=== PATIENT | male | born 1990 | race Two or more races ===

== ENCOUNTER 2016-02-11 00:33 | Day surgery (SDC) | payer OTHER ==
[2016-02-11] MEDS ORDERED: MORPHINE SULFATE 2 MG/ML SYRINGE ONE (01:20)
[2016-02-11] MEDS ORDERED: MORPHINE SULFATE 4 MG/ML SYRINGE ONE (01:20)
[2016-02-11] MEDS ORDERED: ONDANSETRON 4 MG/2ML 2 ML VIAL ONE ×2 (01:20→04:33)
[2016-02-11] MEDS ORDERED: SODIUM CHLORIDE 0.9% 1,000 ML ONE (01:20)
[2016-02-11 01:32] LABS: ABSOLUTE NEUTROPHIL COUNT 9.4 K/mm3 (1.8-7.7); BASO # 0.1 K/mm3 (0.0-0.2); BASO % 0.4 % (0.2-1.0); EOS # 0.1 (0.0-0.5); EOS % 0.5 % (0.9-2.9); HEMOGLOBIN 15.6 gm/l (14.0-18.0); IMM NEUT # 0.1 K/mm3 (0-0.2); IMM NEUT% 0.5 % (0-1); LYMPH # 2.4 (1.0-4.8); LYMPH % 18.5 % (15-45); MEAN CELL VOLUME 87.8 fl (80.0-94.0); MEAN CORPUSCULAR HEMOGLOBIN 29.8 pg (27.0-31.0); MEAN CORPUSCULAR HGB CONC 33.9 g/dl (33.0-37.0); MEAN PLATELET VOLUME 9.7 fl (7.4-10.4); MONO # 1.1 (0.0-0.8); MONO % 8.6 % (4-12); NEUT % 71.5 % (43-75); PLATELET COUNT 303 K/mm3 (130-400); RED CELL DISTRIBUTION WIDTH 11.9 % (11.5-14.5)
[2016-02-11] MEDS ORDERED: CEFAZOLIN SODIUM 1 GRAM PREMIX 50 ML IV ONE ×2 (01:39→01:40)
[2016-02-11 01:53] LABS: INR 0.98; PROTHROMBIN TIME 10.3 SECONDS (9.3-11.4)
[2016-02-11 01:54] LABS: CALCIUM 9.4 mg/dL (8.6-10.3)
[2016-02-11] MEDS ORDERED: LACTATED RINGERS 1,000 ML ONE (03:07)
[2016-02-11] MEDS ORDERED: CLINDAMYCIN 600 MG PREMIX 600 MG in Premix (D5W) 50 ml 1 EACH IV ONE ×2 (03:24→12:00)
[2016-02-11] MEDS ORDERED: FENTANYL 100 MCG/2 ML VIAL ONE (04:09)
[2016-02-11] MEDS ORDERED: CLINDAMYCIN PHOSPHATE 600 MG/4 ML VIAL ONE (04:31)
[2016-02-11] MEDS ORDERED: SODIUM CHLORIDE 0.9% 50 ML IV ONE (04:32)
[2016-02-11] MEDS ORDERED: METOCLOPRAMIDE HCL 5 MG/ML 2ML VIAL ONE (04:33)
[2016-02-11] MEDS ORDERED: PROPOFOL 20 ML IV ONE (04:33)
[2016-02-11] MEDS ORDERED: FAMOTIDINE 10 MG/ML 2ML VIAL ONE (04:33)
[2016-02-11] MEDS ORDERED: SUCCINYLCHOLINE CHL 20 MG/ML DOSE ONE (04:33)
[2016-02-11] MEDS ORDERED: PROMETHAZINE HCL 25 MG/ML VIAL IM PRN (04:48)
[2016-02-11] MEDS ORDERED: NALOXONE HCL 0.4 MG/ML VIAL IV PRN (04:48)
[2016-02-11] MEDS ORDERED: HYDRALAZINE HCL 20 MG/1 ML VIAL IV PRN (04:48)
[2016-02-11] MEDS ORDERED: ATROPINE SULFATE 0.4 MG/1 ML VIAL IV PRN (04:48)
[2016-02-11] MEDS ORDERED: MEPERIDINE 25 MG/ML SYRINGE IV PRN (04:48)
[2016-02-11] MEDS ORDERED: MORPHINE SULFATE 4 MG/ML SYRINGE IV PRN ×2 (04:48→06:35)
[2016-02-11] MEDS ORDERED: ONDANSETRON 4 MG/2ML 2 ML VIAL IV PRN ×2 (04:48→06:05)
[2016-02-11] MEDS ORDERED: MORPHINE SULFATE 10 MG/ML SYRINGE ONE (04:52)
[2016-02-11] MEDS ORDERED: LACTATED RINGERS 1,000 ML IV SCH (05:00)
--- NOTE | 2016-02-11 05:16 | PCMBPN ---
Brief Post Op Note: Date of Procedure: 02/11/16 Preoperative Diagnosis: 1. right foot grade 1 open first metatarsal fracture Postoperative Diagnosis: 1. [Same] Procedure: right foot grade 1 open first metatarsal fracture irrigation and debridement and closed treatment without manipulation of first metatarsal fracture Surgeon: Rocky Gonsalves MD Assist:None Anesthesia: GETA Findings: pt had a medial sided 2cm laceration by the fracture side. No gross contamination was appreciated. 2L of normal saline was used to irrigation the wound before it was closed primarily Condition: extubated, stable vitals, transferred to pacu Complications: None IV Fluids: 900 mLs of LR Urine Output:0 mLs Estimated Blood Loss: 10mLs Tourniquet Time: [N/A] Specimens: [N/A] Implants: None Drains: [N/A] Plan: NWB on the RLE. Clinda 600mg IV x one dose prior to discharge with oral keflex. Oxycodone for pain control. ASA for DVT prophylaxis.
[2016-02-11] MEDS ORDERED: DIPHENHYDRAMINE HCL 50 MG/1 ML VIAL IV PRN (06:05)
[2016-02-11] MEDS ORDERED: MORPHINE SULFATE 2 MG/ML SYRINGE IV PRN (06:05)
[2016-02-11] MEDS ORDERED: CLINDAMYCIN 600 MG PREMIX 600 MG in Premix (D5W) 50 ml 1 EACH IV SCH (06:05)
[2016-02-11] MEDS ORDERED: PUMP TUBING ONE (06:15)
[2016-02-11] MEDS ORDERED: SODIUM CHLORIDE 0.9% FLUSH 10 ML ONE (06:20)
[2016-02-11] MEDS: LACTATED RINGERS 1,000 ML IV SCH ×2 (06:26→13:59)
[2016-02-11 07:29] VITALS: BMI 31.6
--- NOTE | 2016-02-11 08:38 | RAD ---
RIGHT FOOT 3 VIEWS HISTORY: Crush injury of the right foot. COMPARISONS: None. TECHNIQUE: Frontal, lateral, and oblique views of the right foot. ALIGNMENT: Grossly unremarkable. FRACTURE: Mildly displaced oblique fracture through basal portions of the first metatarsal. Subtle medial angulation of distal fracture fragment. Comminuted fracture of the fifth distal phalanx. SOFT TISSUES: Soft tissue swelling at the medial aspect. RADIOOPAQUE FOREIGN BODY: None. IMPRESSION: 1. Mildly displaced, mildly angulated first metatarsal fracture. 2. Comminuted fracture of the fifth distal phalanx. 3. Medial soft tissue swelling.
--- NOTE | 2016-02-11 08:50 | RAD ---
FOOT - RIGHT 2 VIEW COMPARISON: Right foot 3 views, 02/11/2016 HISTORY: Postop irrigation of right foot open fracture of the first metatarsal. FINDINGS: Views: Right foot dorsoplantar and lateral. Bones: Mildly displaced/angulated fracture at the proximal diaphysis of the first metatarsal. Joints: Normal. Soft tissues: Diffuse edema. IMPRESSION: 1. Status post irrigation of right first metatarsal open fracture with mild angulation. No foreign body. Diffuse edema.
[2016-02-11] MEDS ORDERED: ASPIRIN (ENTERIC COATED) 325 MG TABLET.EC PO SCH (09:00)
[2016-02-11] MEDS ORDERED: PROMETHAZINE HCL 25 MG TABLET PO PRN (12:38)
[2016-02-11] MEDS: HYDROCODONE/ACETAMINOPHEN 5/325MG TABLET PO PRN ×2 (15:38→17:02)
[2016-02-11 16:15] VITALS: BP 120/70
--- NOTE | 2016-02-13 09:22 | HP ---
JANIE AYON : 1990 [id number] DATE OF ADMISSION: February 11, 2016 CHIEF COMPLAINT: I was at work when a 2 ton pallet crushed my right foot and I have a fracture. HISTORY OF PRESENT ILLNESS: The patient is a 25-year-old male who was at work in [place] where he works at [employer] when he sustained a crush injury to his right foot when 3 pallets knocked against his foot. He was wearing steel toed boots. Nonetheless, the patient had extreme pain. He was then brought to the [facility] where he was diagnosed with a 1st metatarsal fracture along with a medial sided laceration right by the fracture site. Because of the location near his fracture the ER physician was concerned about a grade I open fracture of his bone. For this reason he asked to see me for consultation. In the ER the patient had a bandaged foot. He had already received his IV antibiotics. He had signs of hematoma on the medial aspect of his foot by his 2cm medial laceration. The laceration itself is at the level of the fracture however, it is not clear that the bone actually exited the surface of the skin. There are no other signs of redness, drainage or any other contamination that can be appreciated on the outside of the skin. I cannot appreciate any foreign body in the wound itself. PAST MEDICAL/SURGICAL HISTORY: The patient states that he is in good health. He does not have diabetes or any cardiac disease. He has a history of 2 hernia operations as well as a left cubital tunnel surgery performed by Dr. Carr in [place] in October of 2015. ALLERGIES: NKDA, the patient does note that whenever he has had surgery in the past his skin has peeled. This is a superficial reaction and does get better. MEDICATIONS: None SOCIAL HISTORY: The patient does not smoke cigarettes. REVIEW OF SYSTEMS: The patient notes to fevers, chills, recent colds or any other problems with this right foot. PHYSICAL EXAMINATION: The patient is alert and oriented x3 and in no acute distress. He is afebrile, vital signs are stable. HEENT: EOMI bilaterally HEART: Regular rate LUNGS: Clear to auscultation bilaterally. ABDOMEN: Soft, NT and non-distended. Focused exam of the right foot demonstrates a 2cm medial sided foot laceration at the level of the fracture. This appears to be a tension sided injury. He has 5/5 strength of his EHL, TA, GA and peroneals. He has the ability to circumduct his foot. He has no numbness or tingling. He has gross sensation to light touch in the distribution of DP, SP, MP, LP, sural and saphenous nerves. He has a 1+ PT pulse. LABS: Sodium 141 Potassium 3.4 Chloride 104 Carbon dioxide 30 BUN 18 Creatinine 1.0. White blood cell count is 13.2 Hematocrit 46 Platelets 303 RADIOGRAPHS: Xrays performed on 02/11/16 demonstrate 3 views of the right foot. The patient has a minimally displaced 1st metatarsal fracture. This is a diaphyseal fracture that does not enter into the joint space. This is roughly at the level of the fracture. On the lateral view displacement is difficult to see. The fracture displacement is best seen on the oblique. IMPRESSION: The patient is a 25-year-old male who has a grade I 2cm laceration on the medial aspect by his 1st metatarsal fracture. PLAN: The patient last ate at 9:30. Because of the location of the fracture by this laceration there is concern about whether this is an open fracture. At this point I do not think the bone came through the skin however, this is a tension sided failure. The patient may still benefit from an I&D to help lower his risk of infection. He did receive Ancef, 2 grams. I talked to him about the risks and benefits of nonoperative and surgical treatment. At this point I think he would be best served by having a formal I&D in the operating room. Here in the ER I performed a superficial I&D showing no gross debris. I told him that the fracture itself should be able to heal with nonoperative treatment being nonweightbearing on this side. I reviewed with him the risks and benefits of I&D of this right foot and he signed the consent form. We will plan on doing this surgery as soon as the surgical team is available to perform this. CHELSIE: trell CC: [facility]
--- NOTE | 2016-02-13 09:56 | OP ---
JANIE AYON : 1990 V [id number] DATE OF PROCEDURE: February 11, 2016 PREOPERATIVE DIAGNOSIS: Right foot grade I open 1st metatarsal fracture. POSTOPERATIVE DIAGNOSIS: Right foot grade I open 1st metatarsal fracture. PROCEDURE: Right foot grade I open 1st metatarsal fracture irrigation and debridement and closed treatment without manipulation of the 1st metatarsal fracture. CPT codes: 48161 and 61769 SURGEON: Rocky Gonsalves M.D. [employer] WORKERS: None ESTIMATED BLOOD LOSS: 10 mL IV FLUIDS: 900 mL of LR URINE OUTPUT: 0 SPECIMENS: N/A TOURNIQUET TIME: N/A IMPLANTS: None DRAINS: N/A ANESTHESIA: General FINDINGS: The patient had a medial sided 1.5 - 2 cm laceration by the fracture site. The laceration was extended. No gross contamination was appreciated. 2 liters of normal saline were used to irrigate as I performed my debridement. The wound was fairly clean and showed no signs of gross contamination. CONDITION: The patient was extubated with stable vital signs and transferred to the PACU. COMPLICATIONS: None PLAN: The patient will be nonweightbearing on the right lower extremity most likely for 6 weeks. We will give him one more dose of Clindamycin here at the hospital before he gets discharged. I will plan on treating him with Keflex for the next week and have him f/u in the office next week. He is in a posterior splint. He will be changed out to a short leg cast. He was given [place] for pain control and aspirin for DVT prophylaxis. INDICATIONS: The patient is a 25-year-old male who was at work on 02/10/16 when a pallet that he estimates weighs between 1-2 tons crashed into his right foot. Despite wearing steel toed boots the patient had a significant amount of pain. He was brought to the [place] ER where he was diagnosed with a grade I open 1st metatarsal fracture. The patient was seen by myself as well as the anesthesia team in the ER. Because of the risk for infection I spoke to him about the benefits of I&D of this fracture. I think the fracture does have some minimal displacement, but it could potentially be treated nonoperatively and I talked to him about taking him to the OR under general anesthesia, irrigating his incision and treating him with some IV antibiotics prior to splinting. I spoke to him about the risks of the procedure and the patient agreed to proceed. PROCEDURE DESCRIPTION: The patient was brought from the ER to the operating theater where he was placed on a standard OR bed. A safety belt was placed. A tourniquet was placed on his right leg, but would not be elevated for the case. The patient received IV sedation and was placed asleep under general anesthesia without incident or complication. Next, the patient's right lower extremity ER dressing was removed. His right foot was then prepped and draped in sterile fashion; first with a Betadine scrub and then prep. After sterile drapes were applied I marked how I would extend the incision longitudinally and I performed a final timeout confirming that the right side was the correct side and our planned procedure was an I&D of this open 1st metatarsal fracture, we had all the necessary equipment and were ready to begin. With a #15 blade I incised the skin. I then used a curette and a small rongeur to debride some of the skin and subcutaneous tissue. I saw no gross contamination. I could palpate the fracture. There were no bony spikes indicative that the fracture itself entered the skin. I then proceeded to use a Armida retractor and irrigated with close to 2 liters of normal saline cleaning out the wound. No manipulation of the fracture was performed. After this was completed I closed the skin with interrupted vertical mattress sutures with 3-0 nylon. The patient had a DSD applied. A posterior splint was then placed. At the end of the case all sponge and needle counts were correct. The patient was extubated and transferred to the recovery room. The patient will be nonweightbearing. He will continue to be kept in the hospital for one more dose of antibiotics prior to being discharged home. Our plan postoperatively will be to give him [place] for pain control and Keflex for the next week for antibiotic treatment and aspirin for DVT prophylaxis. CHELSIE/trell CC: [facility]
== END 2016-02-11 20:10 | disposition home or self-care (01) ==
LOC: ED 00:33 → MS 06:18 → ED 20:10
PROVIDERS: ATTEND Orthopaedic Surgery
PROC: 0M9 Bursae and Ligaments, Drainage (ICD-10-PCS; principal; 2016-02-11)
PROC: 0QSNXZZ Reposition Right Metatarsal, External Approach (ICD-10-PCS; principal; 2016-02-11)
DX: S97.81XA Crushing injury of right foot, initial encounter (principal); S92.311B Displaced fracture of first metatarsal bone, right foot, initial encounter for open fracture; W20.0XXA Struck by falling object in cave-in, initial encounter; Y92.69 Other specified industrial and construction area as the place of occurrence of the external cause; Y99.0 Civilian activity done for income or pay
CPT/HCPCS: 85025; 80048; 85610; 73630; 73620; 97161; 96375 ×2; 99284; 96365; 99285; 28002; 28470; A9270 ×4; J0690 ×2; J3010; J2270 ×4; J2765; J2405 ×3; J7120 ×3; J7030; J7050